=== PATIENT | female | born 1950 | race American Indian/Alaskan Native ===

== ENCOUNTER 2017-08-06 11:32 | Outpatient (CLI) | payer MEDICARE ==
--- NOTE | 2017-08-06 16:03 | Mammography Report ---
BILATERAL DIGITAL SCREENING MAMMOGRAM with CAD: 08/06/17 11:32:00 CLINICAL: Routine screening. COMPARISON:03/26/16 FINDINGS: The breasts are almost entirely fatty.Scattered bilateral benign calcifications. No mass, architectural distortion or suspicious calcifications. IMPRESSION: No mammographic evidence of malignancy. BI-RADS CATEGORY: 2 -- Benign RECOMMENDATION: Routine mammographic screening in one year. COMMENT: Patient follow-up letters are generated by our [employer] application.
== END 2017-08-06 11:33 | disposition home or self-care (01) ==
LOC: SPVWC 11:32
DX: Z12.31 Encounter for screening mammogram for malignant neoplasm of breast (principal)
CPT/HCPCS: 77067; G0202

== ENCOUNTER 2018-11-13 10:18 | Outpatient (CLI) | payer MEDICARE ==
--- NOTE | 2018-11-13 11:18 | Mammography Report ---
Bilateral mammogram: Compared to 03/26/16 and 08/06/17. CAD study utilized. Findings: Predominance of adipose tissue bilaterally. Focal architectural distortion in the subareolar area left breast. No microcalcifications. Normal axilla. Impression: Focal architectural distortion subareolar area left breast. Recommend spot compression and if necessary sonographic examination. BI-RADS CATEGORY: 0 = Needs additional imaging evaluation ACR BI-RADS MAMMOGRAPHIC CODES: 0 = Needs additional imaging evaluation; 1 = Negative; 2 = Benign; 3 = Probably benign; 4 = Suspicious; 5 = Malignant; 6 = Known biopsy-proven malignancy COMMENT: 1. Dense breast tissue, i.e., adenosis, fibrocystic changes, etc., may obscure an underlying neoplasm. 2. Approximately 10% of cancers are not detected with mammography. 3. A negative mammography report should not delay biopsy if a clinically suspicious mass is present. COMMENT: Patient follow-up letters are generated in [employer].
== END 2018-11-13 10:19 | disposition home or self-care (01) ==
LOC: SPVWC 10:18
DX: Z12.31 Encounter for screening mammogram for malignant neoplasm of breast (principal)
CPT/HCPCS: 77067